=== PATIENT | female | born 1970 | race African-American/Black ===

== ENCOUNTER 2019-04-14 11:10 | Observation (INO) | payer OTHER, SELFPAY ==
[2019-04-14] VITALS (19 sets, daily range): BP systolic 102–143; BP diastolic 41–85; PULSE 60–90; RESP 16–21; TEMP 36.3–37.2; O2SAT 98–100; BMI 28.4
--- NOTE | ~2019-04-14 | XR_ITS ---
EXAMINATION: XR shoulder RT min 2V DATE: 04/14/2019 13:06 INDICATION: Right shoulder pain TECHNIQUE: AP internally rotated, AP externally rotated and transscapular Y views of the right should er were obtained. COMPARISON: None FINDINGS: Normal alignment. No fracture. Glenohumeral joint is normal. Mild acromioclavicular osteoarthritis. No cortical erosions or periosteal reaction. Soft tissues are unremarkable./Portions of the right german g are clear. IMPRESSION: Acromioclavicular osteoarthritis. No acute osseous abnormality. Reviewed, dictated and finalized at location A. EL STAVE INSPECTOR
--- NOTE | ~2019-04-14 | CT_ITS ---
EXAMINATION: CT brain wo con EXAM DATE: 04/14/2019 11:50 INDICATION: Lack of coordination. Confusion. Stroke. TECHNIQUE: Spiral CT of the head was performed without contrast. Axial, coronal and sagittal images were reviewed. The dose-length product (DLP) for this examination was 605.33 mGy-cm. The exposure w as tailored according to patient size, and iterative reconstruction (ASIR) was used as additional dos e reduction technique. Comparison is made to prior examination from 12/16/2017. FINDINGS: There is large old left-sided middle cerebral artery distribution infarction. Mild age-rela everton findings. There is no acute intraparenchymal hemorrhage. No evidence of intraparenchymal brain m ass lesion. No evidence of acute infarction. There is no mass effect or midline shift. The ventric les are normal in size. There are no extra-axial collections. There are no acute calvarial fracture s. The orbits are unremarkable. Soft tissue is unremarkable. Chronic complete opacification right m axillary sinus with wall thickening. There is no significant interval change. IMPRESSION: 1. No acute intracranial findings. 2. Large old left MCA infarction. 3. Chronically opacified left maxillary sinus. Reviewed, dictated and finalized at location B. CLEANER
--- NOTE | ~2019-04-14 | XR_ITS ---
EXAMINATION: XR chest 1V EXAM DATE: 04/14/2019 11:49 INDICATION: Transient level of awareness. TECHNIQUE: Portable AP frontal chest x-ray was obtained. Comparison is made to prior examination from 03/22/2017. FINDINGS: The lungs are clear. There are no pleural effusions. Cardiac silhouette is prominent but magnified on this AP technique. There is no pneumothorax suspected. There are mild bony degenerati ve changes. IMPRESSION: No acute cardiopulmonary findings. Reviewed, dictated and finalized at location B. ER MECHANIC
--- NOTE | ~2019-04-14 | US_ITS ---
EXAMINATION: US venous doppler [facility] DATE: 04/15/2019 13:35 INDICATION: Right lower limb pain TECHNIQUE: Grayscale ultrasound images without and with compression and Doppler ultrasound images of the bilateral lower extremity veins were obtained. COMPARISON: 03/24/2017 FINDINGS: The visualized portions of right common femoral vein, profunda (deep) femoral vein, femoral vein, pop liteal vein, posterior tibial veins, peroneal veins, gastrocnemius vein and greater saphenous vein ou tflow are patent. The visualized portions of left common femoral vein, profunda femoral vein, femoral vein, popliteal v ein, posterior tibial veins, peroneal veins, gastrocnemius vein and greater saphenous vein outflow ar e patent. IMPRESSION: 1. No deep venous thrombosis in either lower limb. Reviewed, dictated and finalized at location A. TIME COURT REPORTER
--- NOTE | ~2019-04-14 | XR_ITS ---
EXAMINATION: XR forearm RT 2V DATE: 04/14/2019 13:06 INDICATION: Right forearm pain TECHNIQUE: Frontal an lateral views of the affected forearm were obtained. The frontal images were ob tained on overlapping radiographs due to patient's contractures at the elbow. COMPARISON: none FINDINGS: The elbow is in near complete flexion reportedly due to contractures. Increased scapholunate angle at the carpus which can be seen with scapholunate ligament insufficiency and dorsal intercalated segmen t instability (DISI). No fracture. Joint spaces appear relatively preserved. No right elbow joint eff usion. Indeterminate small osseous excrescence along the posterior/ulnar side of the proximal right r adial diaphysis. Underlying cortex appears otherwise normal with no cortical erosion or aggressive ap pearing periosteal reaction. Soft tissues are unremarkable. IMPRESSION: 1. No acute osseous abnormality. 2. Increased scapholunate angle consistent with scapholunate ligament insufficiency and Dorsal interc alated segment instability (DISI.) 3. Indeterminate nonaggressive appearing small osseous excrescence along the proximal right radial di aphysis without evident medullary continuity which would favor heterotopic ossification related to ol d trauma or enthesopathy over osteochondroma. Reviewed, dictated and finalized at location A. TING HOUSEKEEPER IMPRESSION: 1. No acute osseous abnormality. 2. Increased scapholunate angle consistent with scapholunate ligament insuffici ency and Dorsal intercalated segment instability (DISI.) 3. Indeterminate nonaggressive appearing small osseous excrescence along the pr oximal right radial diaphysis without evident medullary continuity which would favor heterotopic ossification related to old trauma or enthesopathy over osteo chondroma.
--- NOTE | ~2019-04-14 | CT_ITS ---
EXAMINATION: CT abdomen pelvis w con DATE: 04/14/2019 12:36 INDICATION: Upper abdominal pain TECHNIQUE: Computed tomography (CT) of the abdomen and pelvis was performed with 100 mL Omnipaque-350 intravenous contrast. Automated exposure control and iterative reconstruction technique were employe d. The dose-length product was 616.82 mGy-cm. COMPARISON: 03/13/2017 FINDINGS: Minimal dependent atelectasis in the bilateral lower lobes. Heart size is normal. No pericardial or p leural effusion. Cholecystectomy clips the gallbladder fossa. Liver, spleen, pancreas, bilateral adre nal glands and right kidney are normal. 8 mm left renal cyst. Bowels including the appendix are nia l. There is normal. 4.3 x 3.6 x 3.5 cm heterogeneously enhancing likely fibroid in the posterior uter ine fundus. 1.5 cm rim enhancing likely corpus luteum cyst at the left ovary. Persistent 5.8 x 2.7 cm cystic lesion at the left adnexa which could represent additional chronic left ovarian cyst or poten tially a hydrosalpinx. A couple phleboliths at the right adnexa. Trace amount of free fluid in the pe lvis. No pathologically enlarged abdominal or pelvic lymphadenopathy. No interval change in a likely benign 15 mm groundglass sclerotic lesion at the left ilium most likely fibrous dysplasia. Mild lumba r and moderate lower thoracic spondylosis. IMPRESSION: 1. No acute intra-abdominal/pelvic process. 2. Fibroid uterus. 3. Chronic 5.8 x 2.7 cm cystic lesion at the left adnexa which could represent ovarian/adnexal cyst o r potentially a hydrosalpinx. Reviewed, dictated and finalized at location A. RNAL WHOLESALER IMPRESSION: 1. No acute intra-abdominal/pelvic process. 2. Fibroid uterus. 3. Chronic 5.8 x 2.7 cm cystic lesion at the left adnexa which could represent ovarian/adnexal cyst or potentially a hydrosalpinx.
[2019-04-14 11:44] LABS: Basophils Percent Auto 0.7 % (0.2-1.2); Eosinophils Percent Auto 0.4 % (0-4.4); Hematocrit 25.2 % (37.0-47.0); Immature Granulocyte Absolute 0.01 K/mm3 (0.00-0.031); Immature Granulocyte Percent A 0.2 % (0-0.5); Lymphocytes Absolute Auto 2.11 K/mm3 (0.9-3.2); Lymphocytes Percent Auto 39.4 % (18.3-44.2); Mean Corpuscular Hemoglobin 18.6 pg (26-34); Mean Corpuscular Volume 68.9 fl (80-100); Mean Platelet Volume 11.1 fl (7.4-10.4); Monocytes Absolute Auto 0.6 K/mm3 (0.1-0.6); Monocytes Percent Auto 10.4 % (2.6-8.5); Neutrophils Absolute Auto 2.6 K/mm3 (1.3-6.7); Neutrophils Percent Auto 48.9 % (45.5-73.1); Platelet Count Result 397 k/mm3 (150-375); Red Blood Count 3.66 M/mm3 (4.2-5.4); Red Cell Distribution Width 21.2 % (11.5-14.5); White Blood Count 5.4 K/mm3 (4.5-10.0)
[2019-04-14 11:46] LABS: Hemoglobin 6.8 g/dL (12.0-15.0)
--- NOTE | 2019-04-14 11:47 | PC.NURSE ---
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
[2019-04-14 11:50] LABS: Helmet Cells 1+ (NORMAL); Hypochromasia 3+ (NORMAL); Ovalocytes 2+ (NORMAL); Target Cells 2+ (NORMAL); Tear Drop Cells 2+ (NORMAL)
[2019-04-14 11:55] LABS: Prothrombin Time 13.1 Seconds (11.1-14.7)
[2019-04-14 11:56] LABS: Blood Urea Nitrogen 9 mg/dL (7-17); Calcium 9.1 mg/dL (8.4-10.2); Carbon Dioxide 20 mmol/L (22-30); Chloride 105 mmol/L (98-107); Estimated CRCL calculation 88 ml/min; Estimated Glomerular Filt Rate > 60; Glucose 90 mg/dL (65-105); Partial Thromboplastin Time 21.8 SECONDS (22.3-36.8); Potassium 3.6 mmol/L (3.4-5.0); Sodium 138 mmol/L (137-145)
--- NOTE | 2019-04-14 12:02 | ED.NEUROSD ---
HPI - Neuro Symptoms/Deficit General Chief Complaint: Neuro Symptoms/Deficit Stated Complaint: ?CVA Time Seen by Provider: 04/14/19 11:25 Source: patient and RN notes reviewed Mode of arrival: ambulatory Limitations: other (expressive aphasia ) History of Present Illness HPI Narrative: A 49 y/o female presents to the ED via EMS to be evaluated for a possible CVA beginning at 10 AM. The pt reports RUE pain and ABD pain. Per daughter states that the pt began to gaze to the rt and shake around 10 AM this morning. She reports that the pt has a hx of CVA's and wants to make sure that she isn't having another one. The pt notes that she has a hx of anemia in the past. She denies any melena. Onset (ago): hour(s) (1.5) Last Observed Normal: 10:00 Timing confirmed by: family member (daughter) Location: other (gazing to the rt and shaking) History of same: Yes Associated symptoms: other (RUE pain and ABD pain) Related Data Home Medications Medication Instructions Recorded Confirmed Unable to Obtain Home Medications 04/14/19 04/14/19 Allergies Allergy/AdvReac Type Severity Reaction Status Date / Time ibuprofen Allergy Unknown Unknown Verified 04/14/19 11:46 Review of Systems Review of Systems: ROS unobtainable: unobtainable due to mental status Gastrointestinal: Gastrointestinal: Reports abdominal pain and Denies melena Musculoskeletal: Musculoskeletal: Reports other (RUE pain) Neurologic: Reports tremor(s) and Reports other (gazing to the rt) PMFSH Past Medical History Medical History (Updated 04/14/19 @ 19:32 by Eugenio Jolly MD) Anemia Anxiety Arthritis Bronchitis COPD (chronic obstructive pulmonary disease) CVA (cerebral vascular accident) Rt sided deficit and aphasia. H/O: HTN (hypertension) Hand fracture Surgical History Surgical History (Updated 04/14/19 @ 12:05 by Ryan Fung) History of cholecystectomy Previous section x2. Social History Social History (Updated 04/14/19 @ 12:05 by Ryan Fung) Smoking status: Current every day smoker Tobacco type: cigarettes Second hand tobacco smoke exposure: Yes Alcohol intake: never Gender identity (if verbalized by the patient): Female Spiritual care concerns: No Agree to blood products: Yes Comments PCP: Dr.f Bowie. Exam Narrative: Exam Narrative: GENERAL: Chronically ill-appearing, well-nourished, and in no acute distress. HEAD: Normocephalic, atraumatic. EYES: PERRL and EOMI. ENT: Mucous membranes moist. CHEST: Clear to auscultation. No respiratory distress. HEART: Regular rate and rhythm. Normal peripheral pulses. ABDOMEN: Soft, moderate epigastric and right upper quadrant tenderness, nondistended, normal active bowel sounds. Heme-negative stool on MARGOT. EXTREMITIES: Contracture right upper extremity with tenderness of the forearm/wrist. Normal strength left upper extremity. No deformity to the lower extremities. SKIN: Warm, dry, no rash. NEURO: Awake and alert, follows commands well. Can verbalize yes/no. Otherwise she has an expressive a aphasia. Course Course Emergency Course: Patient will be transfused a couple units of blood. Per family on presentation patient has been staring off. Given large volume loss of brain patient could potentially have seizure-like activity. Will need to observe to see if we see any similar symptoms. Patient keenly alert and responsive during my evaluation. Consultations Consultation #1: Discussed case with Dr. Mills (Hospitalist). Accepts the pt. Date: 04/14/19 Time: 14:16 Vital Signs Vital signs: Vital Signs Temperature 99 F 04/14/19 11:40 Pulse Rate 79 04/14/19 11:40 Respiratory Rate 18 04/14/19 11:40 Blood Pressure 138/61 04/14/19 11:40 Pulse Oximetry 98 04/14/19 11:40 Temperature 98.0 F 04/14/19 18:55 Pulse Rate 66 04/14/19 18:55 Respiratory Rate 19 04/14/19 18:55 Blood Pressure 119/52 L 04/14/19 18:55 Pulse Oximetry 100 04/14/19 18:
[2019-04-14 12:07] LABS: Troponin I < 0.012 ng/mL (0.000-0.034)
[2019-04-14 12:34] LABS: Add Urine Microscopic? NO; Appearance Urine Clear (Clear); Bilirubin Urine Negative (Negative); Blood Urine Negative (Negative); Color Urine Straw (Yellow); Glucose Urine UA Negative (Negative); Ketones Urine Negative (Negative); Leukocyte Esterase Ur Negative LEU/UL (Negative); Nitrate Urine Negative (Negative); Protein Urine Negative (Negative); Specific Grav Ur 1.008 (1.001-1.035); Urobilinogen Urine Negative mg/dL (<2.0)
[2019-04-14] MEDS: MORPHINE SULFATE 4 MG/ML INJ IV PUSH (12:45)
[2019-04-14 14:53] LABS: Iron 22 ug/dL (37-170)
[2019-04-14] MEDS: TUBING, BLOOD PLUM PUMP TUBING 1 EACH XX (14:54)
--- NOTE | 2019-04-14 14:54 | PC.NURSE ---
blood consent signed and in chart
[2019-04-14 15:03] LABS: Percent Iron Saturation 5 % (20-50)
[2019-04-14 15:29] LABS: Ferritin 6.33 ng/mL (11.1-264)
[2019-04-14 16:01] LABS: Folic Acid 7.3 ng/mL (2.76->20)
--- NOTE | 2019-04-14 20:23 | ADMGEN ---
This patient, Tita Willett, was admitted to [facility] Surg Room 325-02. Patient/family oriented to hospital policies and general routines including ID bracelet, bed and alarms, visiting hours, pain management, procedures, bathroom and other care routines, personal items, smoking policy, room service/diet, and visiting hours. Valuables list has been completed. Information on how to activate the Rapid Response Team has been discussed. Patient/Family are encouraged to report perceived risks to care and to ask questions if they do not understand what they are told or what they should do.
[2019-04-14 21:44] LABS: Glucose Point of Care 111 (65-105)
--- NOTE | 2019-04-14 23:58 | PC.NURSE ---
Daughter Ingrid was contacted at 2130 regarding the patient's home medications. Ingrid stated that she did not know what medication that her mother is taking. She stated that she would find out and bring a medication list to us on 04/15/2019.
[2019-04-15] VITALS (12 sets, daily range): BP systolic 114–164; BP diastolic 41–80; PULSE 50–74; RESP 16–28; TEMP 36.5–37.3; O2SAT 97–100
--- NOTE | 2019-04-15 02:00 | PM.IMHP ---
H&P: HPI History of Present Illness Chief complaint: Seizure like activity. Narrative: Tita Willett is an unfortunate 49-year-old female with history of large left hemispheric stroke with resultant right hemiparesis and aphasia who presented to the emergency department for evaluation of seizure-like activity. Due to her expressive aphasia, she is not able to elaborate much with regards to what happened today. According to ED documentation, not long prior to arrival the patient's daughter noted that the patient began to shake around 10:00 hours and seemed to have a right sided gaze. Daughter was concerned that perhaps she was having another stroke and brought her in for evaluation. Brain CT showed no new findings. On exam, she was noted to be tender to palpation in epigastric region and subsequent labs revealed a profound microcytic anemia. At the time my evaluation, her only complaint is of epigastric pain. She does believe that she has been having some dark stools recently. Rarely she will have lightheadedness as well. Occasional GERD symptoms. She does not use NSAIDs. No significant caffeine or alcohol use.She has not had nausea or vomiting. She is uncertain as to whether not she had seizure activity this morning. She denies chest pain and shortness of breath. Review of Systems Review of Systems: Narrative: Twelve systems were reviewed with pertinent positives and negatives as per HPI. Review of systems is a bit limited given her expressive aphasia. She denies headache. She has chronic right hemiplegia, which is unchanged. She denies new neurologic deficits. No fever, chills, or sweats. She denies recent cold and flu symptoms. She has not had nausea or vomiting. No hematochezia. Except as documented, all other systems were reviewed and are negative. [facility] Past Medical History Medical History (Updated 04/15/19 @ 04:31 by Angelica Ugalde PA-C) Anxiety Arthritis Chronic anemia COPD (chronic obstructive pulmonary disease) CVA (cerebral vascular accident) 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 Hand fracture Hypertension Tobacco dependence Surgical History Surgical History (Updated 04/14/19 @ 12:05 by Ryan Fung) History of cholecystectomy Previous section x2. Family History Family History (Updated 04/15/19 @ 04:28 by Angelica Ugalde PA-C) Mother Breast cancer Sibling Diabetes mellitus Hypertension Social History Social History (Updated 04/15/19 @ 04:34 by Angelica Ugalde PA-C) Smoking packs per day: 0.5 Smoking cigarettes per day: 10.0 Smoking status: Current every day smoker Tobacco type: cigarettes Second hand tobacco smoke exposure: Yes Alcohol intake: never Additional living arrangements comments: lives in [place]. Gender identity (if verbalized by the patient): Female Spiritual care concerns: No Agree to blood products: Yes Meds Home Medications and Allergies Home Medications Medication Instructions Recorded Confirmed Type Unable to Obtain Home Medications 04/14/19 04/14/19 History Allergies Allergy/AdvReac Type Severity Reaction Status Date / Time ibuprofen Allergy Unknown Unknown Verified 04/14/19 11:46 Vital Signs Vital Signs - 24 hr 04/14/19 11:40 04/14/19 12:00 04/14/19 14:30 Temperature 99 F Pulse Rate 79 84 80 Respiratory Rate 18 16 19 Blood Pressure 138/61 141/85 H 135/62 Pulse Oximetry 98 98 100 04/14/19 15:24 04/14/19 15:28 04/14/19 15:40 Temperature 97.4 F L 98 F Pulse Rate 60 62 65 Respiratory Rate 21 H 20 21 H Blood Pressure 142/65 H 142/65 H 102/73 Pulse Oximetry 100 100 100 04/14/19 16:36 04/14/19 16:40 04/14/19 17:00 Temperature 98.5 F 98.5 F Pulse Rate 68 74 81 Respiratory Rate 18 17 19 Blood Pressure 143/78 H 125/62 Pulse Oximetry 100 100 100 04/14/19 17:03 04/14/19 18:55 04/14/19 19:28 Temperature 98.0
[2019-04-15 08:40] LABS: Hematocrit 31.8 % (37.0-47.0); Hemoglobin 9.2 g/dL (12.0-15.0); Immature Platelet Fraction Pct 9.9 % (0.9-11.2); Mean Corpuscular HGB Conc 28.9 g/dl (32-36); Mean Corpuscular Hemoglobin 20.8 pg (26-34); Mean Corpuscular Volume 71.9 fl (80-100); Mean Platelet Volume 11.5 fl (7.4-10.4); Platelet Count Result 230 k/mm3 (150-375); Red Blood Count 4.42 M/mm3 (4.2-5.4); Red Cell Distribution Width 21.7 % (11.5-14.5); White Blood Count 6.1 K/mm3 (4.5-10.0)
[2019-04-15] MEDS: PANTOPRAZOLE SODIUM IV 40 MG VIAL IV PUSH ×2 (08:55→22:13)
[2019-04-15 08:58] LABS: Blood Urea Nitrogen 9 mg/dL (7-17); Carbon Dioxide 22 mmol/L (22-30); Chloride 106 mmol/L (98-107); Estimated CRCL calculation 88 ml/min; Estimated Glomerular Filt Rate > 60; Glucose 84 mg/dL (65-105); Potassium 4.4 mmol/L (3.4-5.0); Sodium 138 mmol/L (137-145)
--- NOTE | 2019-04-15 10:47 | PM.IMPN ---
Progress Note: A&P Assessment and Plan (1) Acute on chronic anemia: Code(s): D64.9 - Anemia, unspecified Status: Acute Assessment and Plan: H&H low on arrival, 6.8, 25.2% and received 2 units packed RBC. Hgb up to 9.2 this morning. GI consulted - appreciate recommendations. Noted his order for EGD. (2) Seizure-like activity: Code(s): R56.9 - Unspecified convulsions Status: Acute Assessment and Plan: Apparently she had seizure-like activity , prompting her to be brought to the emergency department. She was previously thought to have had focal seizures from previous CVA. Patient tells me she takes seizure medication. Nursing working on contacting family and pharmacy to confirm home medications but it appears she has not been on any medications in the last year for unclear reasons. Discharge summary from 2018 reports she was started on 500mg keppra q12; will start her back on Keppra. Seizure pads in place. Neurology consulted - appreciate recommendations. (3) Tobacco dependence: Code(s): F17.200 - Nicotine dependence, unspecified, uncomplicated Status: Acute Assessment and Plan: Smoking cessation is encouraged. Subjective Date/time seen: 04/15/19 1000 Interval history: Ms. Willett is a 49yo F admitted after seizure-like activity noted by her daughter at home and found to have anemia. She is has right hemiplegia and aphasia from prior CVA; able to communicate using short phrases. She is tearful on exam and tells me she has been in facilities in the past but has been living at home lately. It is reported that she lives at home with her daughter. She tells me she has had seizures following her old stroke and tells me she has about 3 seizures per month. She reports pain in her right arm which is not new. I am unsure how reliable her reported history is to me based on her communication difficulties and complete review of systems is limited. She tells me she is not able to walk at baseline. Exam Narrative: Exam Narrative: General: Female resting supine in bed in no acute distress, tearful on exam. Neuro: Right arm is contracted which is chronic; aphasia from old CVA. Appears to be at her baseline. HEENT: Normocephalic, EOMI, oral mucosa moist. Cardiovascular: Rate and rhythm are regular. Respiratory: Lungs clear to auscultation all nieves. Non-labored breathing. Tolerating room air. Abdomen: Soft, nondistended, bowel sounds present. Epigastric tenderness to palpation. Extremities: Peripheral pulses intact. No edema. EB lower extremity pain to palpation worse on R. Objective Data Vital Signs Vital Signs: Last Vital Signs Temp 99.2 F 04/15/19 06:00 Pulse 74 04/15/19 06:00 Resp 18 04/15/19 06:00 BP 122/51 L 04/15/19 06:00 Pulse Ox 99 04/15/19 06:00 Intake/Output Intake/Output: Intake & Output 04/12/19 04/13/19 04/14/19 04/15/19 23:59 23:59 23:59 23:59 Intake Total 700 440 Output Total 300 Balance 700 140 Meds/Results Medications: Active Medications Generic Name Dose Route Start Last Admin Trade Name Freq PRN Reason Stop Dose Admin Acetaminophen 650 mg 04/14/19 14:43 Tylenol Tablet PO Q4H PRN Mild Pain (1-3) or Fever Hydrocodone Bitart/Acetaminophen 1 tab 04/14/19 14:43 04/15/19 08:53 [place] 5-325 Mg PO 1 tab Q4H PRN Administration Pain Rated 4-6 Acetaminophen 650 mg in 65 mls @ 260 mls/hr 04/14/19 14:43 Ofirmev 650 Mg Ivpb IVPB 04/15/19 14:44 Q6H PRN Mild Pain (1-3) or Fever Ondansetron HCl 4 mg 04/14/19 14:43 Zofran Inj IV PUSH Q4H PRN Nausea Pantoprazole Sodium 40 mg 04/15/19 09:00 04/15/19 08:55 Protonix Iv IV PUSH 40 mg Q12HR MARA Administration Radiology Results: ITS Impressions Head CT 04/14/19 11:54 IMPRESSION: 1. No acute intracranial findings
--- NOTE | 2019-04-15 11:36 | WPDGICN ---
Assessment and Plan Assessment and plan (1) Iron deficiency anemia: Qualifiers: Iron deficiency anemia type: unspecified iron deficiency Qualified Code(s): D50.9 - Iron deficiency anemia, unspecified Code(s): D50.9 - Iron deficiency anemia, unspecified Status: Acute Assessment and Plan: will proceed with EGD to assess if ulcer, esophagitis, etc given upper GI symptoms and symptomatic anemia. Patient eventually also will need to have a colonoscopy (2) Epigastric pain: Code(s): R10.13 - Epigastric pain Status: Acute Assessment and Plan: medical treatment with ppi, more recommendations after egd (3) Seizure-like activity: Code(s): R56.9 - Unspecified convulsions Status: Acute (4) CVA (cerebral vascular accident): Qualifiers: CVA mechanism: unspecified Qualified Code(s): I63.9 - Cerebral infarction, unspecified Code(s): I63.9 - Cerebral infarction, unspecified Status: Acute (5) Hypertension: Qualifiers: Hypertension type: essential hypertension Qualified Code(s): I10 - Essential (primary) hypertension Code(s): I10 - Essential (primary) hypertension Status: Acute (6) Acute on chronic anemia: Code(s): D64.9 - Anemia, unspecified Status: Acute Assessment and Plan: she received blood transfusion GI Consult Note Consult date/time: 04/15/19 11:36 reason for consult: anemia and epigastric pain. HPI: Tita Willett is a 49 year old female admitted to the hospital after she had seizure-like activity noted by her daughter at home. In the ER she also was found to have microcytic anemia, hb 6.8 and received blood transfusion. She had known history of right hemiplegia and expressive aphasia from prior CVA with seizures, difficult to obtain a reliable history from her because aphasia. She states that has been nauseous and also having epigastric pain, no previous history of GERD and daughter thinks that never had a colonoscopy. Stool sample for occult blood was negative. CTscan a/p showed no acute intra-abdominal/pelvic process, fibroid uterus, chronic 5.8 x 2.7 cm cystic lesion at the left adnexa which could represent ovarian/adnexal cyst or potentially a hydrosalpinx. Review of Systems Constitutional: Constitutional: Denies headache(s) and Denies weakness Eyes: Eyes: Denies blurry vision ENT: Reports Normal hearing present, Denies headache(s) and Denies neck pain Cardiovascular: Cardiovascular: Denies chest pain and Denies dyspnea Respiratory: Respiratory: Denies dyspnea Gastrointestinal: Gastrointestinal: Reports no additional gastrointestinal complaints Genitourinary: Genitourinary: Denies dysuria Musculoskeletal: Musculoskeletal: Denies neck pain Integumentary/Breasts: Skin/Breast: Denies dry skin Neurologic: Reports Normal hearing present and Reports seizure-like activity Comments: rt sided weakness from previous stroke and aphasia Psychiatric: Psychiatric: Reports anxiety Endocrine: Endocrine: Denies change in body appearance Hematologic/Lymphatic: Hematologic/Lymphatic: Denies easy bleeding Allergic/Immunologic: Allergic/Immunologic: Denies urticaria PMFSH Past Medical History Medical History (Updated 04/15/19 @ 11:43 by Anthony Galindo MD) Anxiety Arthritis Chronic anemia COPD (chronic obstructive pulmonary disease) CVA (cerebral vascular accident) 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 Epigastric pain Hand fracture Hypertension Iron deficiency anemia Tobacco dependence Surgical History Surgical History (Updated 04/14/19 @ 12:05 by Ryan Fung) History of cholecystectomy Previous section x2. Family History Family History (Updated 04/15/19 @ 04:28 by Angelica Ugalde PA-C) Mother Breast cancer Sibling Diabetes mellitus Hypertension Social History Social
--- NOTE | 2019-04-15 14:22 | WPDANESEPPF ---
Anes - Initial Pre Proc Eval Procedure: Operation Date: 04/15/19 14:30 Proposed Procedures p Esophagogastroduodenoscopy - Anthony Galindo MD Date/Time: 04/15/19 14:22 Surgeon: KARLA Carson Pre Op Diagnosis: Seizure like activity. Patient Data Age: 49 Gender: F Height: 1.68 m Weight: 80 kg Last Vital Signs Temp 37.3 C 04/15/19 06:00 Pulse 74 04/15/19 06:00 Resp 18 04/15/19 06:00 BP 122/51 L 04/15/19 06:00 Pulse Ox 99 04/15/19 06:00 Allergies Allergy/AdvReac Type Severity Reaction Status Date / Time ibuprofen Allergy Unknown Unknown Verified 04/14/19 11:46 Home Medications Medication Instructions Recorded Confirmed Type Unable to Obtain Home Medications 04/14/19 04/14/19 History Laboratory Tests 04/14/19 04/14/19 04/14/19 11:33 11:33 12:44 WBC RBC Hgb Hct MCV MCH MCHC RDW Plt Count MPV % Immature Plt Fraction Sodium Potassium Chloride Carbon Dioxide BUN Creatinine Estim Creat Clear Calc Estimated GFR Glucose POC Capillary Glucose Calcium Iron 22 ug/dL L ug/dL (37-170) TIBC 466 ug/dL H ug/dL (261-462) % Saturation 5 % L % (20-50) Ferritin 6.33 ng/mL L ng/mL (11.1-264) Vitamin B12 335.0 pg/mL pg/mL (239-931) Methylmalonic Acid Folate 7.3 ng/mL ng/mL (2.76->20) Blood Type B Positive Antibody Screen Negative Crossmatch See Detail 04/14/19 04/15/19 04/15/19 21:30 08:23 08:23 WBC 6.1 K/mm3 K/mm3 (4.5-10.0) RBC 4.42 M/mm3 M/mm3 (4.2-5.4) Hgb 9.2 g/dL L g/dL (12.0-15.0) Hct 31.8 % L % (37.0-47.0) MCV 71.9 fl L fl (80-100) MCH 20.8 pg L D pg (26-34) MCHC 28.9 g/dl L g/dl (32-36) RDW 21.7 % H % (11.5-14.5) Plt Count 230 k/mm3 k/mm3 (150-375) MPV 11.5 fl H fl (7.4-10.4) % Immature Plt Fraction 9.9 % % (0.9-11.2) Sodium 138 mmol/L mmol/L (137-145) Potassium 4.4 mmol/L mmol/L (3.4-5.0) Chloride 106 mmol/L mmol/L (98-107) Carbon Dioxide 22 mmol/L mmol/L (22-30) BUN 9 mg/dL mg/dL (7-17) Creatinine 0.70 mg/dL mg/dL (0.7-1.0) Estim Creat Clear Calc 88 ml/min ml/min Estimated GFR > 60 (59 - ) Glucose 84 mg/dL mg/dL (65-105) POC Capillary Glucose 111 mg/dl H mg/dl (65-105) Calcium 9.0 mg/dL mg/dL (8.4-10.2) Iron TIBC % Saturation Ferritin Vitamin B12 Methylmalonic Acid Folate Blood Type Antibody Screen Crossmatch 04/15/19 11:10 WBC RBC Hgb Hct MCV MCH MCHC RDW Plt Count MPV % Immature Plt Fraction Sodium Potassium Chloride Carbon Dioxide BUN Creatinine Estim Creat Clear Calc Estimated GFR Glucose POC Capillary Glucose Calcium Iron TIBC % Saturation Ferritin Vitamin B12 Methylmalonic Acid Pending Folate Blood Type Antibody Screen Crossmatch Patient hx anesthesia problems: none Family hx anesthesia problems: none PMFSH Past Medical History Medical History (Updated 04/15/19 @ 11:43 by Anthony Galindo MD) Anxiety Arthritis Chronic anemia COPD (chronic obstructive pulmonary disease) CVA (cerebral vascular accident) Large left hemispheric stroke in the MCA distribut
--- NOTE | 2019-04-15 14:29 | NEURO_ITS ---
TEST: Electroencephalogram DIAGNOSIS: Possible seizure activity PATIENT NUMBER: [id number] EEG NUMBER: CLINICAL HISTORY: Patient came to the hospital for right arm weakness and seizure like activity. Patient was unable to provide a good history. Patient does have a history of stroke and seizures. Past medical history includes COPD, hypertension, and stroke. CONDITION OF RECORDING: AWAKE AND DROWSY EEG DESCRIPTION: Whole record consists of diffused very poorly organized low- voltage 15-21 beta activity and mixed with multiple movement artifacts and also intermittent regular EKG artifact. Bilateral symmetrical sleep activity is seen, but again compromised but multiple muscle artifacts. Hyperventilation and photic stimulation not done. Non-paroxysmal, non-focal, and non-localizing. IMPRESSION: Even thought the EEG is poor quality, there's no evidence of any paroxysmal activity during the entire tracing. It is compromised by the multiple muscle and movement artifacts. MTDD
[2019-04-15] MEDS: LACTATED RINGERS 1,000 ML 150 ML IV CONT (14:33)
[2019-04-15] MEDS: levETIRAcetam 500MG/NACL 100ML 500 MG/100 ML BAG 400 MG IVPB (16:49)
--- NOTE | 2019-04-15 17:20 | WPDNEURCNPN ---
Assessment and Plan Assessment and plan (1) Acute on chronic anemia: Code(s): D64.9 - Anemia, unspecified Status: Acute (2) Hypertension: Qualifiers: Hypertension type: essential hypertension Qualified Code(s): I10 - Essential (primary) hypertension Code(s): I10 - Essential (primary) hypertension Status: Acute (3) Seizure-like activity: Code(s): R56.9 - Unspecified convulsions Status: Acute Additional Plan seizure is most likely related to her previous stroke she should be continued on Keppra and I will be happy to follow rest of the medical management as per attending physician and the regional rehabilitation director Consult date: 04/15/19 Time Seen: 16:30 HPI: Tita Willett is a 49 year old female who is a Afro[place] and has had a previous rather large left hemispheric stroke which has left her with aphasia and right-sided spastic hemiparesis came with the 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 since she has already been started on Keppra which I concur with she denies any headache chest pain or shortness of breath and she has just come back from having had the endoscopy done for her anemia Review of Systems Constitutional: Constitutional: Reports no additional constitutional complaints Eyes: Eyes: Reports no additional eye complaints ENT: Reports system reviewed and no additional complaints, except as documented Cardiovascular: Cardiovascular: Reports no additional cardiovascular complaints Respiratory: Respiratory: Reports no additional respiratory complaints Gastrointestinal: Gastrointestinal: Reports no additional gastrointestinal complaints Genitourinary: Genitourinary: Reports no additional female genitourinary complaints Musculoskeletal: Musculoskeletal: Reports no additional musculoskeletal complaints Neurologic: Reports system reviewed and no additional complaints, except as documented [facility] Past Medical History Medical History Anxiety Arthritis Chronic anemia COPD (chronic obstructive pulmonary disease) CVA (cerebral vascular accident) 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 Epigastric pain Hand fracture Hypertension Iron deficiency anemia Tobacco dependence Surgical History Surgical History History of cholecystectomy Previous section x2. Family History Family History Mother Breast cancer Sibling Diabetes mellitus Hypertension Social History Social History Smoking packs per day: 0.5 Smoking cigarettes per day: 10.0 Smoking status: Current every day smoker Tobacco type: cigarettes Second hand tobacco smoke exposure: Yes Alcohol intake: never Additional living arrangements comments: lives in [place]. Gender identity (if verbalized by the patient): Female Spiritual care concerns: No Agree to blood products: Yes Meds Home Medications and Allergies Home Medications Medication Instructions Recorded Confirmed Type Unable to Obtain Home Medications 04/14/19 04/14/19 History Allergies Allergy/AdvReac Type Severity Reaction Status Date / Time ibuprofen Allergy Unknown Unknown Verified 04/15/19 14:35 Vital Signs Vital Signs - 24 hr 04/14/19 18:55 04/14/19 19:28 04/14/19 19:30 Temperature 36.7 C 36.6 C 37.0 C Pulse Rate 66 73 71 Respiratory Rate 19 16 16 Blood Pressure 119/52 L 122/51 L 117/52 L Pulse Oximetry 100 99 99 04/14/19 19:44 04/14/19 20:00 04/14/19 20:44 Temperature 37.1 C 37.0 C Pulse Rate 81 90 90 Respiratory Rate 16 16 Blood Pressure 113/52 L 115/41 L Pulse Oximetry 100 98 04/14/19 21:44 04/14/19 21:48 04/14/19 22:00 Temperature 37.1 C 37.1 C 37.1 C Pulse
[2019-04-15] MEDS: IRON SUCROSE COMPLEX 100 MG in SODIUM CHLORIDE 0.9% IV 50 ML 220 MG IVPB (22:13)
[2019-04-16] VITALS: PULSE 59
[2019-04-16 04:00] VITALS: PULSE 58
[2019-04-16] MEDS: levETIRAcetam 1000MG/NACL100ML 1,000 MG/100 ML BAG 400 MG IVPB (04:37)
[2019-04-16 06:00] VITALS: BP 130/59; PULSE 56; RESP 24; TEMP 36.9; O2SAT 100
[2019-04-16 06:08] LABS: Basophils Percent Auto 0.6 % (0.2-1.2); Eosinophils Percent Auto 0.3 % (0-4.4); Hematocrit 29.8 % (37.0-47.0); Hemoglobin 8.7 g/dL (12.0-15.0); Immature Granulocyte Absolute 0.01 K/mm3 (0.00-0.031); Immature Granulocyte Percent A 0.2 % (0-0.5); Lymphocytes Absolute Auto 1.16 K/mm3 (0.9-3.2); Lymphocytes Percent Auto 18.4 % (18.3-44.2); Mean Corpuscular HGB Conc 29.2 g/dl (32-36); Mean Corpuscular Hemoglobin 21.1 pg (26-34); Mean Corpuscular Volume 72.2 fl (80-100); Mean Platelet Volume 10.5 fl (7.4-10.4); Monocytes Absolute Auto 0.7 K/mm3 (0.1-0.6); Monocytes Percent Auto 11.4 % (2.6-8.5); Neutrophils Absolute Auto 4.4 K/mm3 (1.3-6.7); Neutrophils Percent Auto 69.1 % (45.5-73.1); Platelet Count Result 291 k/mm3 (150-375); Red Blood Count 4.13 M/mm3 (4.2-5.4); Red Cell Distribution Width 21.6 % (11.5-14.5); White Blood Count 6.3 K/mm3 (4.5-10.0)
[2019-04-16 06:25] LABS: Alanine Aminotransferase 12 U/L (4-35); Albumin Level 3.7 g/dL (3.5-5.1); Alkaline Phosphatase 49 U/L (38-126); Aspartate Amino Transferase 30 U/L (14-36); Bilirubin,Total 0.7 mg/dL (0.2-1.3); Blood Urea Nitrogen 9 mg/dL (7-17); Calcium 8.7 mg/dL (8.4-10.2); Carbon Dioxide 23 mmol/L (22-30); Chloride 108 mmol/L (98-107); Estimated CRCL calculation 78 ml/min; Estimated Glomerular Filt Rate > 60; Glucose 85 mg/dL (65-105); Magnesium 2.1 mg/dL (1.6-2.3); Phosphorus 3.5 mg/dL (2.5-4.5); Potassium 3.8 mmol/L (3.4-5.0); Sodium 139 mmol/L (137-145)
[2019-04-16 06:53] LABS: Hypochromasia 3+ (NORMAL); Platelet Estimate Adequate (Adequate)
[2019-04-16 06:54] LABS: Anisocytosis 2+ (NORMAL); Large Platelets Present
[2019-04-16 08:00] VITALS: PULSE 47
[2019-04-16] MEDS: PANTOPRAZOLE SODIUM IV 40 MG VIAL IV PUSH (08:38)
[2019-04-16 12:00] VITALS: PULSE 57
[2019-04-16 14:00] VITALS: BP 132/51; PULSE 64; RESP 18; TEMP 37.3; O2SAT 100
--- NOTE | 2019-04-16 15:31 | P.PNAN_ITS ---
Anes - Prog Note Post-Op Date/Time: 04/16/19 15:31 Cardiovascular status: normal Respiratory status: normal Airway patency: baseline Mental status: baseline Post-Op hydration status: normal Vital Signs: Last Vital Signs Temp 37.3 C 04/16/19 14:00 Pulse 64 04/16/19 14:00 Resp 18 04/16/19 14:00 BP 132/51 L 04/16/19 14:00 Pulse Ox 100 04/16/19 14:00 I/O: Intake & Output 04/15/19 04/16/19 04/16/19 23:59 07:59 15:59 Intake Total 640 100 480 Output Total 800 100 Balance -160 0 480 Laboratory Tests 04/16/19 05:58 04/16/19 05:58 04/16/19 04/16/19 05:58 05:58 WBC 6.3 RBC 4.13 L Hgb 8.7 L Hct 29.8 L MCV 72.2 L MCH 21.1 L MCHC 29.2 L RDW 21.6 H Plt Count 291 MPV 10.5 H Immature Gran % (Auto) 0.2 Neut % (Auto) 69.1 Lymph % (Auto) 18.4 [place] % (Auto) 11.4 H Eos % (Auto) 0.3 Baso % (Auto) 0.6 Lymph # (Auto) 1.16 [place] # (Auto) 0.7 H Eos # (Auto) 0.0 Baso # (Auto) 0.0 Abs Immat Gran (auto) 0.01 Absolute Neuts (auto) 4.4 Absolute Nucleated RBC 0.0 Nucleated RBC % 0.0 Platelet Estimate Adequate Large Platelets Present Hypochromasia 3+ Anisocytosis 2+ Sodium 139 Potassium 3.8 Chloride 108 H Carbon Dioxide 23 BUN 9 Creatinine 0.80 Estim Creat Clear Calc 78 Estimated GFR > 60 Glucose 85 Calcium 8.7 Phosphorus 3.5 Magnesium 2.1 Total Bilirubin 0.7 AST 30 ALT 12 Alkaline Phosphatase 49 Total Protein 7.0 Albumin 3.7 Post-procedural complaints: none Patient Feedback: Patient satisfied with anesthetic care.
--- NOTE | 2019-04-16 18:09 | PM.DS ---
DS: Diagnosis Admitting Diagnosis Admitting Diagnosis: Unspecified convulsions Discharge Diagnosis (1) Acute on chronic anemia: Code(s): D64.9 - Anemia, unspecified Status: Acute Assessment and Plan: Date of Service 04/16/19 Ms. Willett is a 49yo F with history of prior CVA with residual right hemiplegia and aphasia, history of seizures following her CVA who presented to the ED for evaluation after seizure-like activity was noted at home by her daughter. It was noted that the patient had not been on any medications for the last year or so due to medical insurance lapsing and changing primary care providers. Family was not able to provide a list of her old medications. The patient reported she used to be on seizure medications but could not recall the name. A discharge summary from our facility 2017 noted that she was started on Keppra at that time. She was restarted on Keppra here at the same dose and had no further seizure activity during her stay. Routine labs on arrival showed hemoglobin 6.8, hct 25.2% at which time she received 2 units packed RBC. GI was consulted and she underwent EGD by Dr Monroy 04/15. EGD was unremarkable and he recommended following up with him for colonoscopy after discharge. Iron studies showed her to be iron deficient and she was started on oral ferrous sulfate. H&H remained low but stable at discharge and no hematochezia or melena was identified. Speech therapy performed bedside evaluation and reported no signs or symptoms of aspiration. She is able to answer most questions with short phrases, yes or no questions, but some pieces of her history are difficult to obtain. She lives at home with her daughter who is caring for her. Care coordination provided information regarding home health and [facility] for more bag sorter assistance at home. She was hemodynamically stable for discharge 04/16/19 with instructions to re-establish care with PCP and continue taking Keppra. (2) Seizure-like activity: Code(s): R56.9 - Unspecified convulsions Status: Acute Assessment and Plan: Apparently she had seizure-like activity , prompting her to be brought to the emergency department. She was previously thought to have had focal seizures from previous CVA. Restarted on Keppra 500mg q12. (3) Tobacco dependence: Code(s): F17.200 - Nicotine dependence, unspecified, uncomplicated Status: Acute Assessment and Plan: Smoking cessation is encouraged. DS: Summary Time Spent with Patient Time attestation: Total time spent providing and/or coordinating discharge services: 35 minutes Exam Narrative: Exam Narrative: General: Female resting supine in bed in no acute distress. Neuro: Right arm is contracted which is chronic; aphasia from old CVA. Appears to be at her baseline. HEENT: Normocephalic, EOMI, oral mucosa moist. Cardiovascular: Rate and rhythm are regular. Respiratory: Lungs clear to auscultation all nieves. Non-labored breathing. Tolerating room air. Abdomen: Soft, nondistended, bowel sounds present. Mild epigastric tenderness to palpation. Extremities: Peripheral pulses intact. No edema. DS: Data Data Completed and Pending Labs on day of discharge: Labs from last 24 hours 04/16/19 04/16/19 05:58 05:58 WBC 6.3 RBC 4.13 L Hgb 8.7 L Hct 29.8 L MCV 72.2 L MCH 21.1 L MCHC 29.2 L RDW 21.6 H Plt Count 291 MPV 10.5 H Immature Gran % (Auto) 0.2 Neut % (Auto) 69.1 Lymph % (Auto) 18.4 Power % (Auto) 11.4 H Eos % (Auto) 0.3 Baso % (Auto) 0.6 Lymph # (Auto) 1.16 Power # (Auto) 0.7 H Eos # (Auto) 0.0 Baso # (Auto) 0.0 Abs Immat Gran (auto) 0.01 Absolute Neuts (auto) 4.4 Absolute Nucleated RBC 0.0 Nucleated RBC % 0.0 Platelet Estimate Adequate Large Platelets Present Hypochromasia 3+ Anisocytosis 2+ Sodium 139
[2019-04-18 18:05] LABS: Methylmalonic Acid 128 nmol/L (87-318)
== END 2019-04-16 16:00 | disposition home health service (06) ==
LOC: ANHED 11:29 → ANH3MEDSUR 16:05
PROVIDERS: Emergency Medicine Emergency Medical Services; Internal Medicine Gastroenterology; Physician Assistant; Admitting Provider Internal Medicine; Emergency Provider Emergency Medicine; PCP Family Medicine; Visit Provider Physician Assistant
PROC: 0DJ08ZZ Inspection of Upper Intestinal Tract, Via Natural or Artificial Opening Endoscopic (ICD-10-PCS; CPT 43235; principal; 2019-04-15 14:30)
DX: D50.9 Iron deficiency anemia, unspecified (principal); R56.9 Unspecified convulsions; K21.9 Gastro-esophageal reflux disease without esophagitis; K44.9 Diaphragmatic hernia without obstruction or gangrene; I69.351 Hemiplegia and hemiparesis following cerebral infarction affecting right dominant side; I69.320 Aphasia following cerebral infarction; M79.604 Pain in right leg; I10 Essential (primary) hypertension; Z23 Encounter for immunization; J44.9 Chronic obstructive pulmonary disease, unspecified; F17.210 Nicotine dependence, cigarettes, uncomplicated
CPT/HCPCS: 43235; 36415; 36430; 70450; 71045; 73030; 73090; 74177; 80048; 80053; 81003; 82607; 82728; 82746; 83540; 83550; 83735; 83921; 84100; 84484; 85025; 85027; 85055; 85610; 85730; 86850; 86900; 86901; 86920; 90471; 90686; 92610; 93005; 93970; 95816; 96361; 96365; 96374; 96375; 96376; 99285; A9270; C9113; G0008; G0378; G0379; J1756; J1953; J2270; J2704; J7120; P9016; Q9967